=== PATIENT | female | born 1950 | race Caucasian/White ===

== ENCOUNTER → 2021-03-19 12:02 | Outpatient (CLI) | payer BC, SELFPAY ==
--- NOTE | ~2021-03-19 | MR_ITS ---
EXAMINATION: MR lumbar spine wo con DATE: 03/19/2021 13:28 INDICATION: Lumbar spine pain. Right hip pain. TECHNIQUE: Magnetic resonance imaging (MRI) of the lumbar spine was performed without intravenous con trast. Sequences included sagittal T2-weighted FSE, sagittal T2-weighted FS FSE, sagittal T1-weighted FSE, and axial T2-weighted FSE. COMPARISON: Lumbar spine radiograph 09/08/2018 FINDINGS: There is 14 degrees levoscoliosis of lumbar spine. There is mild chronic anterior wedging o f T11 vertebral body. There is a hemangioma in L1 vertebral body. There is moderately decreased disc height at T10-T11, severely decreased disc height at L2-L3, and mildly decreased disc height at L4-L5 with endplate remodeling. The distal spinal cord signal intensity is normal. The conus medullaris is at L1. The following disc levels are specifically discussed: L1-L2: There is a left foraminal protrusion. There is moderate bilateral facet joint osteoarthritis. There is mild left neural foraminal stenosis. There is no central canal stenosis. L2-L3: The disc is bulging and has an annular fissure. There is mild bilateral facet joint osteoarthr itis. There is moderate bilateral neural foraminal stenosis. There is mild central canal stenosis. L3-L4: The disc does not extend beyond the endplate margin. There is mild bilateral facet joint osteo arthritis. There is no neural foraminal stenosis. There is no central canal stenosis. L4-L5: The disc is bulging and has an annular fissure. There is moderate right and severe left facet joint osteoarthritis. There is mild bilateral neural foraminal stenosis. There is mild central canal stenosis. L5-S1: The disc does not extend beyond the endplate margin. There is mild right and moderate left fac et joint osteoarthritis. There is no neural foraminal stenosis. There is no central canal stenosis. IMPRESSION: 1. Severe lumbar spondylosis. 2. Lumbar levoscoliosis. Reviewed, dictated and finalized at location A. [employer]
--- NOTE | ~2021-03-19 | MR_ITS ---
EXAMINATION: MR hip RT wo con DATE: 03/19/2021 13:54 INDICATION: Right hip pain TECHNIQUE: Magnetic resonance imaging (MRI) of the right hip was performed without intravenous contr ast. Sequences included full-field axial PD-weighted FS FSE and T1-weighted FSE, coronal of the pelvi s with PD-weighted FS FSE, T2-weighted FSE and T1-weighted FSE, small field of view of the right hip with axial PD-weighted FS FSE, sagittal PD-weighted FS FSE, coronal PD-weighted FS FSE and coronal T 2 weighted FSE. Additional radial T1-weighted FGR oriented orthogonal to the acetabular rim were obta ined for evaluation of the labrum. COMPARISON: Right hip radiographs dated 09/08/2018 FINDINGS: Bones/labrum/cartilage: Alignment is normal. No fracture, avascular necrosis or pathologic marrow replacing process. Extensi ve tear extending from the 1:30 position of the anterosuperior right acetabular labrum posteriorly to the 9:30 position of the posterior labrum. The superolateral to posterior superior labrum has a mace rated appearance with an associated para labral cyst extending approximately 3 cm anteroposteriorly a nd measuring 6 x 13 mm in maximal orthogonal dimensions. Mild right hip osteoarthritis with mild part ial thickness cartilage loss with chondral surface irregularity. Mild spondylosis at the visualized l ower lumbar spine. Fluid: Symmetric physiologic amount of fluid within both hip joints. Soft tissues: Normal and symmetric muscle bulk and signal in the pelvis and visualized proximal thighs. The iliopso as, gluteal and proximal hamstring tendons are normal. There are few diverticula without adjacent inf lammatory change along the sigmoid colon. Normal appendix. Limited evaluation of visceral organs of t he pelvis is otherwise unremarkable. No pathologically enlarged pelvic/inguinal lymphadenopathy. IMPRESSION: 1. 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 Reviewed, dictated and finalized at location [facility]. [facility] [employer] IMPRESSION: 1. 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
== END ==
PROVIDERS: Visit Provider Specialist
DX: M16.11 Unilateral primary osteoarthritis, right hip (principal); M47.896 Other spondylosis, lumbar region
CPT/HCPCS: 72148; 73721